=== PATIENT | male | born 1970 | race Caucasian/White ===

== ENCOUNTER 2019-03-28 23:57 | Emergency (ER) | payer BC ==
[~2019-03-28] VITALS: Ht 170.2 cm; Wt 88.5 kg
[2019-03-29] MEDS ORDERED: [UNRECOGNIZED DRUG - REMARK] (00:07)
[2019-03-29] MEDS ORDERED: [UNRECOGNIZED DRUG - REMARK] (00:07)
[2019-03-29] MEDS ORDERED: [UNRECOGNIZED DRUG - REMARK] (00:07)
[2019-03-29] MEDS ORDERED: [UNRECOGNIZED DRUG - REMARK] (00:07)
--- NOTE | 2019-03-29 00:17 | NUR ---
Dr Pace into eval patient.
[2019-03-29] MEDS ORDERED: FLUCONAZOLE 100 MG TABLET ONE (00:25)
[2019-03-29] MEDS: FLUCONAZOLE 100 MG TABLET PO ONE (00:27)
[2019-03-29 00:39] VITALS: BP 133/95
--- NOTE | 2019-03-29 00:39 | NUR ---
Patient discharged to home in stable conditon. Written and verbal after care instructions given. Patient verbalizes understanding of instructions. Walked out of ER with no distress noted.
== END 2019-03-29 00:40 | disposition home or self-care (01) ==
LOC: ER 03-29 00:08
DX: B35.0 Tinea barbae and tinea capitis (principal); E78.5 Hyperlipidemia, unspecified; Z79.899 Other long term (current) drug therapy
CPT/HCPCS: A4663